=== PATIENT | female | born 1950 | race Caucasian/White ===

== ENCOUNTER → 2017-12-30 | Outpatient (CLI) | payer MEDICARE | LOC: LAB 07:12 → LAB SHORT 07:12 | DX: D48.5 Neoplasm of uncertain behavior of skin (principal) | CPT/HCPCS: 88305 ==

== ENCOUNTER 2025-02-01 11:51 | Observation (INO) | payer MEDICARE ==
[~2025-02-01] VITALS: Ht 170.2 cm; Wt 73.0 kg
[2025-02-01 12:24] LABS: BASOPHILS ABSOLUTE AUTO 0.08 K/mm3 (0.00-0.23); BASOPHILS PERCENT AUTO 1 % (0-2); EOSINOPHILS ABSOLUTE AUTO 0.26 K/mm3 (0.00-0.68); EOSINOPHILS PERCENT AUTO 4 % (0-6); Hematocrit 40.2 % (33.0-51.0); Hemoglobin 13.8 g/dL (11.5-16.0); IMMATURE GRAN ABSOLUTE AUTO 0.05 K/mm3 (0.00-0.10); IMMATURE GRAN PERCENT AUTO 1 % (0-1); LYMPHOCYTES ABSOLUTE AUTO 1.81 K/mm3 (0.84-5.20); LYMPHOCYTES PERCENT AUTO 29 % (21-46); MONOCYTES ABSOLUTE AUTO 0.52 K/mm3 (0.16-1.47); MONOCYTES PERCENT AUTO 9 % (4-13); Mean Corpuscular HGB 30.3 pg (26.0-34.0); Mean Corpuscular HGB Conc 34.3 g/dL (31.5-36.5); Mean Corpuscular Volume 88 fL (80-100); NEUTROPHILS ABSOLUTE AUTO 3.43 K/mm3 (1.96-9.15); NEUTROPHILS PERCENT AUTO 56 % (41-73); Platelet Count 236 K/mm3 (150-400); RDW Coefficient Variation 12.2 % (11.7-14.2); RDW Standard Deviation 39.8 fL (35.1-46.3); Red Blood Cell Count 4.55 M/mm3 (3.80-5.20); White Blood Cell Count 6.15 K/mm3 (4.00-11.30)
[2025-02-01 12:45] LABS: International Normalized Ratio 0.96; Prothrombin Time Results 10.3 Sec (9.7-11.5)
[2025-02-01 13:20] LABS: Albumin, Blood 4.1 g/dL (3.4-5.0); Albumin/Globulin Ratio 1.1 (0.8-1.8); Bilirubin, Total 0.5 mg/dL (0.1-1.0); Bun/Creatinine Ratio 24.3 (12.0-20.0); Calcium, Blood 9.6 mg/dL (8.5-10.1); Creatinine, Blood 0.7 mg/dL (0.40-1.00); Globulin, Blood 3.6 g/dL (2.2-4.0); Potassium, Blood 3.6 mmol/L (3.5-5.5); Total Protein, Blood 7.7 g/dL (6.4-8.2)
[2025-02-01] MEDS ORDERED: FLU VACC TS2024-25(6MOS UP)/PF 45 MCG/0.5 ML SYRINGE IM SCH (15:20)
[2025-02-01 17:06] VITALS: BP 155/99
[2025-02-01] MEDS ORDERED: LEVSOD100 PO (18:42)
[2025-02-01] MEDS ORDERED: HYDCHL12.5 PO (18:43)
[2025-02-01] MEDS ORDERED: Alendronate Sod70 MG PO (18:45)
[2025-02-01] MEDS ORDERED: Clopidogrel Bisulfate 75 MG Tab PO SCH (19:00)
[2025-02-01] MEDS ORDERED: Aspirin 81 MG Chew PO SCH (19:00)
--- NOTE | 2025-02-01 19:19 | NUR ---
pt came in from ED, she is able to transfer herself to bed, a/ox4, pleasant and cooperative with care, follows commands well, denies any pain, smile is symetrical, wire coiner are equal, but her fine motor skills are weak and doesn't feel the control of her right hand, right foot is equally strong, she reports her speech is a bit slower than normal, lungs are clear t/o, resp even and unlabored, no cough noted, hrr, no edema noted, ppp+2, cap refill< 3 sec, vs stable, afebrile, piv site is clear and patent, btx4, abd flat soft nontender, voids without diff, skin c/w/d, mike mena, oriented to room layout and call system, call light in reach.
[2025-02-01 20:13] VITALS: BP 127/77
[2025-02-01] MEDS ORDERED: Oxymetazoline 0.05% Nasal Relief Spray 15mL BTL PRN (22:05)
[2025-02-02 00:32] VITALS: BP 113/77
--- NOTE | 2025-02-02 03:29 | NUR ---
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 WAS ADMITTED TO FLOOR YESTERDAY WITH DX OF CVA. ALERT AND ORIENTED. DENIED LOSSOF FEELING. 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 DORSI AND PLANTAR FLEXION EQUAL AND STRONG. ALEXX. NEURO CHECKS DONE ABOUT EVERY 4 HRS, NO CHANGE. WILL CONT TO MONITOR. HAS BEEN RESTING QUIETLY, USING PERSONAL CPAP AFTER REQUESTING AND RECEIVING ANTICONGESTION MED. AGREED TO USE CALL LIGHT IF NEEDING TO GET OOB FOR SAFETY REASONS. CALL LIGHT IN REACH, RAILS UP X 2 AND BED IN LOW POSITION FOR SAFETY. AM RN REPORTED PT TO HAVE ECHO IN THE AM. WILL CONT TO MONITOR
[2025-02-02 04:49] VITALS: BP 135/86
[2025-02-02 05:14] LABS: BASOPHILS ABSOLUTE AUTO 0.09 K/mm3 (0.00-0.23); BASOPHILS PERCENT AUTO 2 % (0-2); EOSINOPHILS ABSOLUTE AUTO 0.34 K/mm3 (0.00-0.68); EOSINOPHILS PERCENT AUTO 7 % (0-6); Hematocrit 38.7 % (33.0-51.0); Hemoglobin 13.1 g/dL (11.5-16.0); IMMATURE GRAN ABSOLUTE AUTO 0.03 K/mm3 (0.00-0.10); IMMATURE GRAN PERCENT AUTO 1 % (0-1); LYMPHOCYTES ABSOLUTE AUTO 1.47 K/mm3 (0.84-5.20); LYMPHOCYTES PERCENT AUTO 31 % (21-46); MONOCYTES ABSOLUTE AUTO 0.52 K/mm3 (0.16-1.47); MONOCYTES PERCENT AUTO 11 % (4-13); Mean Corpuscular HGB Conc 33.9 g/dL (31.5-36.5); Mean Corpuscular Volume 89 fL (80-100); Mean Platelet Volume 9.1 fL (9.1-12.4); NEUTROPHILS ABSOLUTE AUTO 2.37 K/mm3 (1.96-9.15); NEUTROPHILS PERCENT AUTO 49 % (41-73); Platelet Count 207 K/mm3 (150-400); RDW Coefficient Variation 12.2 % (11.7-14.2); RDW Standard Deviation 39.9 fL (35.1-46.3); Red Blood Cell Count 4.36 M/mm3 (3.80-5.20); White Blood Cell Count 4.82 K/mm3 (4.00-11.30)
[2025-02-02 05:33] LABS: Anion Gap 8 mmol/L (3-11); Blood Urea Nitrogen 15 mg/dL (8-24); Bun/Creatinine Ratio 19.9 (12.0-20.0); CHOL/HDL RATIO 3.1; CO2, Blood 28 mmol/L (21-32); Calcium, Blood 8.8 mg/dL (8.5-10.1); Chloride, Blood 106 mmol/L (98-108); Cholesterol 208 mg/dL (50-200); Creatinine, Blood 0.76 mg/dL (0.40-1.00); Glomerular Filtration Rate 83 (60-); Glucose, Blood 93 mg/dL (70-99); HDL Cholesterol 67 mg/dL (>39); LDL/HDL RATIO 1.8; Low Density Lipoprotein Chol 120 mg/dL (0-110); Potassium, Blood 3.6 mmol/L (3.5-5.5); Sodium, Blood 138 mmol/L (136-145); Triglycerides 107 mg/dL (30-160); Very Low Density Lipoprot Chol 21 mg/dL (6-32)
[2025-02-02] MEDS ORDERED: Levothyroxine Sodium 0.1 MG Tab PO SCH (06:00)
[2025-02-02 07:39] VITALS: BP 133/89
[2025-02-02] MEDS ORDERED: Enoxaparin 40 MG/0.4 ML SYR SC SCH (09:00)
[2025-02-02] MEDS ORDERED: HydroCHLOROthiazide 25 mg Tab PO SCH (12:00)
[2025-02-02] MEDS ORDERED: Atorvastatin 40 MG Tab PO SCH (12:00)
[2025-02-02] MEDS ORDERED: Atorvastatin 40 MG Tab PO ONE (13:00)
[2025-02-02] MEDS ORDERED: ASPI81CH PO (14:47)
[2025-02-02] MEDS ORDERED: CLOP75 PO (14:48)
[2025-02-02] MEDS ORDERED: ATOR40TA PO (14:49)
--- NOTE | 2025-02-02 15:00 | NUR ---
PT DISCHARGED TO HOME. DISCHARGE INSTRUCTIONS PROVIDED AND EDUCATED ON AT TIME OF DISCHARGE. ALL VALUABLES RETURNED AND SENT HOME WITH THE PT.
== END 2025-02-02 15:13 | disposition home or self-care (01) ==
LOC: ER 11:51 → ERHOLD 11:52 → MEDS 16:52
PROVIDERS: Emergency Medicine; ADMIT Internal Medicine
DX: I63.9 Cerebral infarction, unspecified (principal); I10 Essential (primary) hypertension; E78.5 Hyperlipidemia, unspecified; G47.33 Obstructive sleep apnea (adult) (pediatric); E03.9 Hypothyroidism, unspecified; M81.0 Age-related osteoporosis without current pathological fracture; Z88.2 Allergy status to sulfonamides
CPT/HCPCS: 36415; 70450; 70496; 70498; 70551; 71045; 80048; 80053; 80061; 83036; 84484; 85025; 85610; 85730; 92610; 93005; 93010; 93306; 96372; 99285-25; A9270; G0378; J1650; Q9967